=== PATIENT | female | born 1950 | race Caucasian/White ===

== ENCOUNTER 2019-04-03 10:07 | Day surgery (SDC) | payer BC, OTHER ==
[2019-04-03] VITALS (13 sets, daily range): BP systolic 124–146; BP diastolic 59–78; PULSE 76–100; RESP 16–28; Ht 160 cm; Wt 49.2 kg
[~2019-04-03] VITALS: Ht 160 cm; Wt 49.2 kg
[~2019-04-03 10:07] MED LIST: CEFAZOLIN 2 GM/50 ML (PMX) 50 ML IVPB ONE; MULT-276 PO
[2019-04-03] MEDS ORDERED: LACTATED RINGER'S 1,000 ML IV SCH (11:00)
[2019-04-03] MEDS ORDERED: POLYMYXIN/BACITRACIN 1L IRRIG ONE (12:14)
[2019-04-03] MEDS ORDERED: morphine SULFATE/PF (10 MG/10 ML) INJ ONE (12:15)
[2019-04-03] MEDS ORDERED: LIDOCAINE 1% (MPF) 30 ML INJ ONE (12:15)
[2019-04-03] MEDS ORDERED: ROPIVACAINE 0.5 % 30 ML VIAL ONE (12:15)
[2019-04-03] MEDS ORDERED: LIDOCAINE 2% (SDV) 5 ML INJ ONE (13:10)
[2019-04-03] MEDS ORDERED: GLYCOPYRROLATE 0.4 MG INJ ONE (13:10)
[2019-04-03] MEDS ORDERED: PROPOFOL 20 ML ONE (13:10)
[2019-04-03] MEDS ORDERED: NEOSTIGMINE 3 MG/3 ML SYRINGE ONE (13:10)
[2019-04-03] MEDS ORDERED: SUCCINYLCHOLINE CHLORIDE 100 MG/5 ML SYG IV ONE (13:10)
[2019-04-03] MEDS ORDERED: ROCURONIUM 50 MG INJ ONE (13:10)
[2019-04-03] MEDS ORDERED: MEPERIDINE 100 MG INJ ONE (13:11)
[2019-04-03] MEDS ORDERED: LIDOCAINE 1%/EPI 30 ML INJ ONE (13:36)
[2019-04-03] MEDS ORDERED: ONDANSETRON 4 MG INJ ONE (14:28)
[2019-04-03] MEDS ORDERED: METOCLOPRAMIDE 10 MG INJ ONE (14:28)
[2019-04-03] MEDS ORDERED: LABETALOL HCL 20MG INJ IV PRN (15:00)
[2019-04-03] MEDS ORDERED: MIDAZOLAM 1 MG/ML 2 ML INJ IV PRN (15:00)
[2019-04-03] MEDS ORDERED: FENTAnyl 50 MCG/ML VIAL IV PRN ×3 (15:00)
[2019-04-03] MEDS ORDERED: ONDANSETRON 4 MG INJ IV PRN (15:00)
[2019-04-03] MEDS ORDERED: EPHEDrine 25 MG/5 ML SYG IV PRN (15:00)
[2019-04-03] MEDS ORDERED: DIPHENHYDRAMINE 50 MG INJ IV PRN (15:00)
[2019-04-03] MEDS ORDERED: hydrALAzine 20 MG INJ IV PRN (15:00)
[2019-04-03] MEDS ORDERED: MEPERIDINE 25 MG INJ IV PRN (15:00)
[2019-04-03] MEDS ORDERED: METOCLOPRAMIDE 10 MG INJ IV PRN (15:00)
[2019-04-03] MEDS ORDERED: BUPIVACAINE LIPOSOME/PF 266 MG/20 ML VIAL INFIL ONE (15:30)
[2019-04-03] MEDS ORDERED: DEXAMETHASONE 4 MG/ML 1 ML INJ IV ONE (16:00)
[2019-04-03] MEDS ORDERED: KETOROLAC 30 MG INJ IV STA (18:14)
== END 2019-04-03 18:55 | disposition home or self-care (01) ==
LOC: SDS 10:07
PROVIDERS: ATTEND Orthopaedic Surgery Hand Surgery
DX: S52.502A Unspecified fracture of the lower end of left radius, initial encounter for closed fracture (principal); D64.9 Anemia, unspecified; X58.XXXA Exposure to other specified factors, initial encounter; Y93.89 Activity, other specified; Y92.89 Other specified places as the place of occurrence of the external cause; Y99.9 Unspecified external cause status
CPT/HCPCS: 25609; 73090; C9290; J1100; J1885; J2405; J2710; J2765; C1713; J2175; J2274; J2795